=== PATIENT | female | born 2000 | race Two or more races ===

== ENCOUNTER → 2018-12-17 | Outpatient (CLI) | payer OTHER | END | disposition home or self-care (01) | LOC: PRENATAL 10:39 | DX: O99.810 Abnormal glucose complicating pregnancy (principal) ==

== ENCOUNTER 2019-03-01 11:01 | Emergency (ER) | payer OTHER ==
[~2019-03-01] VITALS: Ht 152.4 cm; Wt 59.0 kg
[2019-03-01] MEDS ORDERED: PRENATAL TABLE1 EAC1 (11:57)
== END 2019-03-01 15:45 | disposition home or self-care (01) ==
LOC: ER 11:01
DX: O26.893 Other specified pregnancy related conditions, third trimester (principal); R10.11 Right upper quadrant pain; Z34.03 Encounter for supervision of normal first pregnancy, third trimester

== ENCOUNTER 2019-04-21 21:23 | Outpatient (CLI) | payer OTHER ==
[~2019-04-21 21:23] MED LIST: PRENATAL TABLE1 EAC1
[2019-04-21] MEDS ORDERED: PRENATAL TABLE1 EAC1 PO (22:31)
== END 2019-04-22 11:02 | disposition home or self-care (01) ==
LOC: OBS/DEL 21:23
DX: O60.03 Preterm labor without delivery, third trimester (principal); O23.43 Unspecified infection of urinary tract in pregnancy, third trimester

== ENCOUNTER 2019-05-03 19:27 | Inpatient (IN) | payer OTHER ==
[~2019-05-03] VITALS: Ht 154.9 cm; Wt 66.2 kg
[~2019-05-03 19:27] MED LIST changes: +PRENATAL TABLE1 EAC1 PO
== END 2019-05-07 16:11 | disposition home or self-care (01) | DRG 788 ==
LOC: OB/GYN 19:27 → LDR 19:27 → O/R 05-04 17:30 → OB/GYN 05-04 20:27
PROVIDERS: ADMIT Obstetrics & Gynecology
PROC: 3E0P7VZ Introduction of Hormone into Female Reproductive, Via Natural or Artificial Opening (ICD-10-PCS; 2019-05-03)
PROC: 4A1HXCZ Monitoring of Products of Conception, Cardiac Rate, External Approach (ICD-10-PCS; 2019-05-03)
PROC: 10907ZC Drainage of Amniotic Fluid, Therapeutic from Products of Conception, Via Natural or Artificial Opening (ICD-10-PCS; 2019-05-04)
PROC: 3E033VJ Introduction of Other Hormone into Peripheral Vein, Percutaneous Approach (ICD-10-PCS; 2019-05-04)
PROC: 10D00Z1 Extraction of Products of Conception, Low, Open Approach (ICD-10-PCS; principal; 2019-05-04 18:00)
DX: O82 Encounter for cesarean delivery without indication (principal); O61.0 Failed medical induction of labor; Z3A.38 38 weeks gestation of pregnancy; Z37.0 Single live birth